=== PATIENT | female | born 1970 | race Caucasian/White ===

== ENCOUNTER → 2017-04-26 | Outpatient (CLI) | payer MEDICARE, MEDICAID ==
[~2017-04-26] MED LIST: BENZ200C15 PO; CIPR-344 PO; CLON-303 PO; DOXY-181 PO; ESTR2TAB26 PO; FLUO-202 PO; FLUT9.9S; HYDR-318 PO; HYDR-385 PO; HYDR-4225 PO; HYDR-4228 PO; HYDR-4305 PO; LAMO100T56 PO; LEVO750T27 PO; LEVO750T44 PO; LURA60TA PO; METH4TAB66 PO; NICO1PAT86 TD; PRAZ5CAP16 PO; PROG100C16 PO; PROM-110 PO
--- NOTE | 2017-04-26 10:16 | RADIOLOGY IMAGING REPORT ---
FACILITY: [facility] - [place] PATIENT NAME: Joe Farrell : 1970 MR: [id number] V: [id number] EXAM DATE: ORDERING PHYSICIAN: NELIDA GEORGE TECHNOLOGIST: [place] [facility] [place] Joe Farrell : 1970 Visit/Account:[id number] Date of Sevice: 04/26/2017 CHEST PA AND LAT History: Chronic cough. Comparison none. FINDINGS: Lungs are clear, no effusion. No pneumothorax. Heart size within normal limits. Mediastinal contour w ithin normal limits. IMPRESSION: No evidence of acute cardiopulmonary disease. Report Dictated By: Mike Alonso MD at 04/26/2017 10:12 AM Report E-Signed By: Mike Alonso MD at 04/26/2017 10:12 AM WSN:[id number]
== END ==
LOC: RAD 08:53
PROVIDERS: ATTEND Nurse Practitioner Family
DX: R05 Cough (principal)
CPT/HCPCS: 71046

== ENCOUNTER 2017-08-11 20:12 | Emergency (ER) | payer MEDICARE, MEDICAID ==
--- NOTE | 2017-08-11 20:16 | ER Report ---
History and Physical Time Seen By MD: 20:16 HPI/ROS CHIEF COMPLAINT: Right eye pain HISTORY OF PRESENT ILLNESS: 47-year-old female who wears contact lenses thinks she may have gotten something in her eye earlier today. She has severe right eye pain. She had some tearing. Patient's wearing thirty-day contacts. She's had them in approximately 2 weeks. Allergies: Coded Allergies: amoxicillin (Verified Allergy, Intermediate, 05/21/16) morphine (Verified Allergy, Intermediate, 05/21/16) methylprednisolone (Verified Adverse Reaction, Unknown, 07/27/16) Caused manic episode of bipolar disorder Home Meds Active Scripts Promethazine Hcl (PROMETHAZINE HCL) 25 Mg Tablet, 1 TAB PO TID Y for NAUSEA, # 30 TAB Prov:NELIDA GEORGE APRN-C 06/12/17 Fluticasone Propionate (Flonase Allergy Relief) 9.9 Ml [place].susp, 2 EA NA DAILY , #1 BOTTLE 5 Refills Prov:NELIDA GEORGE APRN-C 04/26/17 Estradiol (ESTRADIOL) 2 Mg Tablet, 1 TAB PO DAILY, #90 TAB 3 Refills Prov:NELIDA GEORGE APRN-C 03/23/16 Reported Medications Hydrocodone Bit/Acetaminophen (HYDROCODON-ACETAMINOPHEN 5-325) 1 Each Tablet, 10 MG PO Q6H, TAB 08/11/17 Prazosin Hcl (PRAZOSIN HCL) 5 Mg Capsule, 2 TAB PO HS, CAPSULE 02/07/16 Clonazepam (CLONAZEPAM) 1 Mg Tablet, 1 TAB PO TID, #6 TAB 02/07/16 Lurasidone Hcl (LATUDA) 60 Mg Tablet, 1 TAB PO DAILY 02/07/16 Fluoxetine Hcl (PROZAC) 20 Mg Capsule, 1 TAB PO QDAY, CAPSULE 02/07/16 Lamotrigine (LAMICTAL) 100 Mg Tablet, 1 TAB PO BID 02/07/16 Discontinued Reported Medications Hydrocodone/Acetaminophen (Lortab 7.5-325 mg Tablet) 1 Each Tablet, 1 TAB PO Q6H 05/21/16 Discontinued Scripts Nicotine (NICOTINE PATCH) 1 Each Patch.td24, 1 PATCH TD DAILY, #42 PATCH 0 Refills Prov:NELIDA GEORGE APRN-C 08/13/16 Reviewed Nurses Notes: Yes Old Medical Records Reviewed: Yes Smoking Status: Current: Every Day Smoker Hx Substance Use Disorder: No Hx Alcohol Use: No Constitutional Vital Sign - Last 24 Hours 08/11/17 20:17 Temp 98.7 Pulse 79 Resp 18 B/P (MAP) 112/69 Pulse Ox 94 O2 Delivery Room Air Physical Exam General appearance: Mild distress HEENT: Both contact lenses are removed. The right eye shows no corneal uptake. Respiratory: Chest is non tender, lungs are clear to auscultation. Cardiac: Regular rate and rhythm DIFFERENTIAL DIAGNOSIS: After history and physical exam differential diagnosis was considered for foreign body eye, corneal abrasion, contact keratitis, corneal ulcer Medical Decision Making ED Course/Re-evaluation ED Course Patient was admitted to an examination room. H&P was done. The differential diagnoses was considered. On clinical exam. Patient has contact keratitis of her right eye. Her contacts are removed. She'll be treated with Tobrex drops twice a day for 3 days. She is advised not wear contacts for 5 days. Decision to Disposition Date: Aug 11, 2017 Decision to Disposition Time: 20:41 Depart Departure Latest Vital Signs Vital Signs Date Time Temp Pulse Resp B/P (MAP) Pulse Ox O2 Delivery O2 Flow Rate FiO2 08/11/17 20:17 98.7 79 18 112/69 94 Room Air Impression: Primary Impression: Keratitis secondary to contact lens Condition: Improved Disposition: HOME OR SELF-CARE Referrals: NELIDA GEORGE APRN [employer] (PCP) Patient Instructions: Keratitis (ED) Additional Instructions: Use Tobrex drops 1 drop twice daily for 3 days You may resume wearing her contacts in 5 days if her eyes feel fine Follow-up with your eye doctor if unimproved in 3 days REBEKAH SURESH DO Aug 11, 2017 20:16
[2017-08-11 20:17] VITALS: BP 112/69
[2017-08-11] MEDS ORDERED: HYDR-385 PO (20:26)
[2017-08-11] MEDS ORDERED: FLUORESCEIN SOD 1 MG 1 EA STRP OD ONE (20:30)
[2017-08-11] MEDS ORDERED: PROPARACAINE 0.5% OP 15ML BTL OD ONE (20:30)
[2017-08-11] MEDS ORDERED: TOBRAMYCIN/DEX OP SUSP 2.5 ML OD ONE (20:45)
== END 2017-08-11 20:51 | disposition home or self-care (01) ==
LOC: ER 20:26
DX: H16.9 Unspecified keratitis (principal)
CPT/HCPCS: 99282; A9270

== ENCOUNTER 2017-10-14 22:30 | Emergency (ER) | payer MEDICARE, MEDICAID ==
[~2017-10-14 22:30] MED LIST changes: -CHOL400C10 PO
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
[2017-10-14] MEDS ORDERED: CHOL400C10 PO (22:36)
[2017-10-14] MEDS ORDERED: METOCLOPRAMIDE 10 MG/2 ML SDV IVP ONE (22:55)
[2017-10-14] MEDS ORDERED: IOPAMIDOL 76% 100 ML INFUS BTL 0 ML ONE (23:20)
[2017-10-14] MEDS ORDERED: NS 0.9% 25 ML BAG 25 ML ONE (23:20)
--- NOTE | 2017-10-15 00:53 | RADIOLOGY IMAGING REPORT ---
FACILITY: [facility] PATIENT NAME: Joe Farrell : 1970 MR: [id number] V: [id number] EXAM DATE: ORDERING PHYSICIAN: ROLO HOWE TECHNOLOGIST: Location: [facility] - [place] Patient: Joe Farrell : 1970 Visit/Account:[id number] Date of Sevice: 10/14/[address] scan without contrast COMPARISONS: None ADDITIONAL PERTINENT HISTORY: Choking TECHNIQUE: Multiple axial images were obtained from the skull base to the vertex without IV contrast . One of the following dose optimization techniques was utilized in the performance of this exam: Aut omated exposure control; adjustment of the mA and/or kV according to the patient's size; or use of an iterative reconstruction technique. Specific details can be referenced in the facility's radiology CT exam operational policy. FINDINGS: Midline shift: Negative Ventricles: Negative Brain parenchyma: Negative Extra-axial spaces: Negative Intracranial vasculature: Negative Osseous structures: Negative Paranasal sinuses and mastoid air cells: Thickening of the [place] of the right maxillary sinus with a small amount of frothy material within the right sphenoid sinus. Surrounding soft tissues and orbits: Negative IMPRESSION: 1. Mild paranasal sinus disease. 2. Normal head CT scan without contrast. Report Dictated By: Foreign Colby MD at 10/15/2017 12:43 AM Report E-Signed By: Foreign Colby MD at 10/15/2017 12:49 AM WSN:[id number]
--- NOTE | 2017-10-15 00:56 | RADIOLOGY IMAGING REPORT ---
FACILITY: [facility] PATIENT NAME: Joe Farrell : 1970 MR: [id number] V: [id number] EXAM DATE: ORDERING PHYSICIAN: ROLO HOWE TECHNOLOGIST: Location: [facility] - [place] Patient: Joe Farrell : 1970 Visit/Account:[id number] Date of Sevice: 10/15/2017 CT of the neck without contrast Comparison: None Additional pertinent history: Choking TECHNIQUE: Multiple axial images were obtained from the mid portion of the brain through the superio r mediastinum without IV contrast. Coronal and sagittal reformatted images were obtained off the ax ial source data. One of the following dose optimization techniques was utilized in the performance o f this exam: Automated exposure control; adjustment of the mA and/or kV according to the patient's si ze; or use of an iterative reconstruction technique. Specific details can be referenced in the [facility]'s radiology CT exam operational policy. FINDINGS: Visualized portions of the brain parenchyma:Negative Parotid glands/submandibular glands/thyroid: Negative Orbits: Negative Paranasal sinuses: Mild thickening of the [place] of the right maxillary sinus with material along the medial wall of the right maxillary sinus which could represent a mild degree of acute right maxillar y sinusitis. Otherwise negative Parapharyngeal spaces: Negative Nasopharynx/oropharynx/hypopharynx: Negative Tonsillar pillars: Negative Oral tongue/tongue base: Negative True and false cords: Negative Lymph node assessment: Few small scattered nonpathologically enlarged lymph nodes within multiple sta tions within the neck, presumably reactive. Otherwise negative Surrounding soft tissues: Negative Vasculature: Negative Osseous structures: Patient status post previous anterior interbody fusion of C4-C6. Anteriorly and p osteriorly directed osteophytes at C3-C4 and C6-7. IMPRESSION: 1. No acute process involving the neck. Report Dictated By: Foreign Colby MD at 10/15/2017 12:49 AM Report E-Signed By: Foreign Colby MD at 10/15/2017 12:53 AM WSN:[id number]
[2017-10-15 02:06] VITALS: BP 107/76
== END 2017-10-15 02:07 | disposition home or self-care (01) ==
LOC: ER 22:34
DX: M54.2 Cervicalgia (principal); J34.89 Other specified disorders of nose and nasal sinuses; F17.200 Nicotine dependence, unspecified, uncomplicated; Z79.899 Other long term (current) drug therapy
CPT/HCPCS: 70450; 70490; 99284; Q9967

== ENCOUNTER → 2017-10-14 | Outpatient (CLI) | payer MEDICARE, MEDICAID ==
[~2017-10-14] MED LIST changes: +CHOL400C10 PO; -CLON-303 PO; +CLON-304 PO
== END ==
LOC: AMB 21:42
PROVIDERS: ATTEND Nurse Practitioner
DX: M54.2 Cervicalgia (principal); R51 Headache; F10.129 Alcohol abuse with intoxication, unspecified; Y04.0XXA Assault by unarmed brawl or fight, initial encounter
CPT/HCPCS: A0425; A0427

== ENCOUNTER 2017-10-30 20:03 | Emergency (ER) | payer MEDICARE, MEDICAID ==
[~2017-10-30 20:03] MED LIST changes: -HYDR25TA66 PO; -LOR5/325 PO; -LURA120T PO; -ONDA4TAB PO; -PROM12.556 PO
--- NOTE | 2017-10-30 20:09 | ER Report ---
History and Physical Time Seen By MD: 20:09 HPI/ROS CHIEF COMPLAINT: Vomiting, hematemesis, coughing, difficulty breathing HISTORY OF PRESENT ILLNESS: 47-year-old female smoker is been sick for several weeks. Began vomiting 2 days ago. Tonight she vomited so hard she developed hematemesis. Patient is complaining of shortness of breath. She noted wheezing when she would lay supine and she become more short of breath. Patient describes viral URI symptoms for 2-3 weeks. She has a productive cough. Patient's never been treated for emphysema or COPD. Patient admits she has a chronic cough for the last 4 months. She's been much worse and she had viral URI symptoms for the last 3 weeks. She's been vomiting today. She notes no fevers. Her husbands been sick as well. REVIEW OF SYSTEMS: Respiratory: As above Cardiovascular: No chest pain, no palpitations. Gastrointestinal: As above Musculoskeletal: No back pain. Allergies: Coded Allergies: amoxicillin (Verified Allergy, Intermediate, 10/30/17) morphine (Verified Allergy, Intermediate, 10/30/17) methylprednisolone (Verified Adverse Reaction, Unknown, 10/30/17) Caused manic episode of bipolar disorder prednisone (Verified Adverse Reaction, Unknown, 10/30/17) MAKES MY BIPOLAR MEDS NOT WORK Home Meds Active Scripts Promethazine Hcl (PROMETHAZINE HCL) 12.5 Mg Tablet, 12.5 MG PO Q6H PRN for NAUSEA/VOMITING, #60 TAB Prov:REBEKAH SURESH DO 10/30/17 Estradiol (ESTRADIOL) 2 Mg Tablet, 1 TAB PO DAILY, #90 TAB 3 Refills Prov:NELIDA GEORGE APRN-C 10/22/17 Fluticasone Propionate (Flonase Allergy Relief) 9.9 Ml [place].susp, 2 EA NA DAILY, #1 BOTTLE 5 Refills Prov:NELIDA GEORGE APRNP-C 04/26/17 Reported Medications Hydralazine Hcl (HYDRALAZINE HCL) 25 Mg Tablet, 25 MG PO QDAY, TAB 10/30/17 Hydrocodone Bit/Acetaminophen (HYDROCODON-ACETAMINOPHEN 5-325) 1 Each Tablet, 2 EACH PO Q4H PRN for PAIN MDD 4000, TAB 10/30/17 Ondansetron (ZOFRAN ODT) 4 Mg Tab.rapdis, 4 MG PO PRN, TAB.CHRISS 10/30/17 Lurasidone Hcl (LATUDA) 120 Mg Tablet, 120 MG PO QDAY 10/30/17 Cholecalciferol (Vitamin D3) (VITAMIN D) 400 Unit Capsule, 400 UNIT PO, CAPSULE 10/14/17 Prazosin Hcl (PRAZOSIN HCL) 5 Mg Capsule, 2 TAB PO HS, CAPSULE 02/07/16 Clonazepam (CLONAZEPAM) 1 Mg Tablet, 1 TAB PO TID, #6 TAB 02/07/16 Fluoxetine Hcl (PROZAC) 20 Mg Capsule, 1 TAB PO QDAY, CAPSULE 02/07/16 Lamotrigine (LAMICTAL) 100 Mg Tablet, 1 TAB PO BID 02/07/16 Discontinued Reported Medications Lurasidone Hcl (LATUDA) 60 Mg Tablet, 1 TAB PO DAILY 02/07/16 Discontinued Scripts Promethazine Hcl (PROMETHAZINE HCL) 25 Mg Tablet, 1 TAB PO TID PRN for NAUSEA, #30 TAB Prov:NELIDA GEORGE APRN [employer] SPLITTER OPERATOR-C 06/12/17 Past Medical/Surgical History Past Medical History Gastrointestinal: Reports hx of: other GI history (reports intolerance to dairy and gluten - ) Musculoskeletal: Reports hx of: neck pain (chronic - related to ani placement / previous fusion ) Psychiatric: Reports hx of: anxiety bipolar disorder PTSD Past Surgical History HEENT: Reports hx of: tonsillectomy Gynecologic: Reports hx of: hysterectomy oophorectomy Musculoskeletal: Reports hx of: arthroscopy (Shoulder) spinal surgery (ani placed to neck C3-5 for c-spine fracture - 2005 - chronic pain since then) Reviewed Nurses Notes: Yes Old Medical Records Reviewed: Yes Smoking Status: Current: Every Day Smoker Hx Substance Use Disorder: No Hx Alcohol Use: No Constitutional Vital Sign - Last 24 Hours 10/30/17 10/30/17 10/30/17 10/30/17 20:06 20:09 20:15 20:15 Temp 97.5 Pulse 52 45 Resp 28 16 B/P (MAP) 119/82 (94) 119/82 Pulse Ox 100 97 O2 Delivery Room Air Room Air 10/30/17 10/30/17 10/30/17 10/30/17 20:15 20:18 20:33 20:48 Pulse 50 53 52 Resp 21 11 B/P (MAP) 101/75 (84) Pulse Ox 99 97 92 O2 Delivery Room Air Room Air Room Air 10/30/17 10/30/17 10/30/17 10/30/17 20:53 20:56 21:00 21:17 Pulse 55 Resp 18 B/P (MAP) 102/74 (83) 106/72 (83) 95/79 (84) Pulse Ox 95 O2 Delivery Room Air 10/30/17 10/30/17 10/30/17 10/30/17 21:23 21:36 21:38 21:53 Pulse 58 55 53 Resp 12 12 14 B/P (MAP) 108/74 (85) Pulse Ox 99 93 94 O2 Delivery Room Air Room Air 10/30/17 10/30/17 22:00 22:08 Pulse 59 Resp 12 B/P (MAP) 104/67 (79) Pulse Ox 96 O2 Delivery Room Air Physical Exam Vital signs stable, afebrile, pulse ox normal, vomiting General Appearance: The patient is alert, has no immediate need for airway protection and no current signs of toxicity. Moderate distress, vomiting, no evidence of hematemesis HEENT: Pupils equal and round no injection. TMs normal, oropharynx with m oderate erythema, Respiratory: Chest is non tender, lungs are clear to auscultation., Faint, extremely wheezing Cardiac: regular rate and rhythm Gastrointestinal: Abdomen is soft mild epigastric tenderness, no masses, bowel sounds normal. Musculoskeletal: Neck: Neck is supple and non tender. No lymphadenopathy Extremities have full range of motion and are non tender. Skin: No rashes or lesions. DIFFERENTIAL DIAGNOSIS: After history and physical exam differential diagnosis was considered for shortness of breath including but not limited to pulmonary infectious process, COPD, asthma, pulmonary embolus and congestive heart failure. Additionallyabdominal pain including but not limited to appendicitis, cholecystitis, gastritis and urinary tract infection. Medical Decision Making Data Points Result Diagram: 10/30/17205010/30/172050 Laboratory Hematology Test 10/30/17 20:51 10/30/17 21:16 Red Blood Count 4.06 M/uL (4.17-5.56) Mean Corpuscular Volume 97.0 fL (80.0-96.0) Mean Corpuscular Hemoglobin 34.3 pg (26.0-33.0) Mean Corpuscular Hemoglobin Concent 35.3 g/dL (32.0-36.0) Red Cell Distribution Width 13.1 % (11.5-14.5) Mean Platelet Volume 8.4 fL (7.2-11.1) Neutrophils (%) (Auto) 41.8 % (39.4-72.5) Lymphocytes (%) (Auto) 51.9 % (17.6-49.6) Monocytes (%) (Auto) 4.1 % (4.1-12.4) Eosinophils (%) (Auto) 1.1 % (0.4-6.7) Basophils (%) (Auto) 1.1 % (0.3-1.4) Nucleated RBC Relative Count (auto) 0.1 /100WBC Neutrophils # (Auto) 3.3 K/uL (2.0-7.4) Lymphocytes # (Auto) 4.1 K/uL (1.3-3.6) Monocytes # (Auto) 0.3 K/uL (0.3-1.0) Eosinophils # (Auto) 0.1 K/uL (0.0-0.5) Basophils # (Auto) 0.1 K/uL (0.0-0.1) Nucleated RBC Absolute Count (auto) 0.01 K/uL Prothrombin Time 12.9 seconds (12.0-14.4) Prothromb Time International Ratio 0.97 Activated Partial Thromboplast Time 27 seconds (23-35) D-Dimer Quantitative (PE/DVT) 0.29 ug/ml (0-0.50) Sodium Level 139 mmol/L (137-145) Potassium Level 3.9 mmol/L (3.5-5.0) Chloride Level 106 mmol/L (98-107) Carbon Dioxide Level 24 mmol/L (22-31) Blood Urea Nitrogen 25 mg/dl (7-18) Creatinine 0.70 mg/dl (0.52-1.04) Glomerular Filtration Rate Calc > 60.0 Random Glucose 88 mg/dl (75-110) Calcium Level 8.4 mg/dl (8.4-10.2) Total Bilirubin 0.2 mg/dl (0.2-1.3) Aspartate Amino Transf (AST/SGOT) 44 U/L (0-35) Alanine Aminotransferase (ALT/SGPT) 52 U/L (0-56) Alkaline Phosphatase 93 U/L (0-126) Troponin I < 0.012 ng/ml B-Type Natriuretic Peptide 56 pg/ml (0-100) Total Protein 5.6 g/dl (6.3-8.2) Albumin 3.2 g/dl (3.5-5.0) Human Chorionic Gonadotropin, Qual Negative (NEGATIVE) Urine Color Yellow Urine Clarity Clear Urine pH 6.0 pH (4.8-9.5) Urine Specific [place] 1.028 Urine Protein Negative mg/dL (NEGATIVE) Urine Glucose (UA) Negative mg/dL (NEGATIVE) Urine Ketones Negative mg/dL (NEGATIVE) Urine Blood Negative (NEGATIVE) Urine Nitrite Negative (NEGATIVE) Urine Bilirubin Moderate (NEGATIVE) Urine Urobilinogen 2.0 mg/dL (0.2-1.9) Urine Leukocyte Esterase Negative (NEGATIVE) Urine RBC <1 /HPF (0-2/HPF) Urine WBC None /HPF (0-5/HPF) Urine Squamous Epithelial Cells Many /LPF (</=FEW) Urine Bacteria Negative /HPF (NONE-FEW) Urine Mucus Few /HPF (NONE-FEW) Chemistry Test 10/30/17 20:51 10/30/17 21:16 White Blood Count 7.9 k/uL (4.5-11.0) Red Blood Count 4.06 M/uL (4.17-5.56) Hemoglobin 13.9 g/dL (12.0-16.0) Hematocrit 39.4 % (34.0-47.0) Mean Corpuscular Volume 97.0 fL (80.0-96.0) Mean Corpuscular Hemoglobin 34.3 pg (26.0-33.0) Mean Corpuscular Hemoglobin Concent 35.3 g/dL (32.0-36.0) Red Cell Distribution Width 13.1 % (11.5-14.5) Platelet Count 186 K/uL (150-450) Mean Platelet Volume 8.4 fL (7.2-11.1) Neutrophils (%) (Auto) 41.8 % (39.4-72.5) Lymphocytes (%) (Auto) 51.9 % (17.6-49.6) Monocytes (%) (Auto) 4.1 % (4.1-12.4) Eosinophils (%) (Auto) 1.1 % (0.4-6.7) Basophils (%) (Auto) 1.1 % (0.3-1.4) Nucleated RBC Relative Count (auto) 0.1 /100WBC Neutrophils # (Auto) 3.3 K/uL (2.0-7.4) Lymphocytes # (Auto) 4.1 K/uL (1.3-3.6) Monocytes # (Auto) 0.3 K/uL (0.3-1.0) Eosinophils # (Auto) 0.1 K/uL (0.0-0.5) Basophils # (Auto) 0.1 K/uL (0.0-0.1) Nucleated RBC Absolute Count (auto) 0.01 K/uL Prothrombin Time 12.9 seconds (12.0-14.4) Prothromb Time International Ratio 0.97 Activated Partial Thromboplast Time 27 seconds (23-35) D-Dimer Quantitative (PE/DVT) 0.29 ug/ml (0-0.50) Glomerular Filtration Rate Calc > 60.0 Calcium Level 8.4 mg/dl (8.4-10.2) Total Bilirubin 0.2 mg/dl (0.2-1.3) Aspartate Amino Transf (AST/SGOT) 44 U/L (0-35) Alanine Aminotransferase (ALT/SGPT) 52 U/L (0-56) Alkaline Phosphatase 93 U/L (0-126) Troponin I < 0.012 ng/ml B-Type Natriuretic Peptide 56 pg/ml (0-100) Total Protein 5.6 g/dl (6.3-8.2) Albumin 3.2 g/dl (3.5-5.0) Human Chorionic Gonadotropin, Qual Negative (NEGATIVE) Urine Color Yellow Urine Clarity Clear Urine pH 6.0 pH (4.8-9.5) Urine Specific [place] 1.028 Urine Protein Negative mg/dL (NEGATIVE) Urine Glucose (UA) Negative mg/dL (NEGATIVE) Urine Ketones Negative mg/dL (NEGATIVE) Urine Blood Negative (NEGATIVE) Urine Nitrite Negative (NEGATIVE) Urine Bilirubin Moderate (NEGATIVE) Urine Urobilinogen 2.0 mg/dL (0.2-1.9) Urine Leukocyte Esterase Negative (NEGATIVE) Urine RBC <1 /HPF (0-2/HPF) Urine WBC None /HPF (0-5/HPF) Urine Squamous Epithelial Cells Many /LPF (</=FEW) Urine Bacteria Negative /HPF (NONE-FEW) Urine Mucus Few /HPF (NONE-FEW) Coagulation Test 10/30/17 20:51 Prothrombin Time 12.9 seconds Prothromb Time International Ratio 0.97 Activated Partial Thromboplast Time 27 seconds D-Dimer Quantitative (PE/DVT) 0.29 ug/ml Urinalysis Test 10/30/17 21:16 Urine Color Yellow Urine Clarity Clear Urine pH 6.0 pH (4.8-9.5) Urine Specific [place] 1.028 Urine Protein Negative mg/dL (NEGATIVE) Urine Glucose (UA) Negative mg/dL (NEGATIVE) Urine Ketones Negative mg/dL (NEGATIVE) Urine Blood Negative (NEGATIVE) Urine Nitrite Negative (NEGATIVE) Urine Bilirubin Moderate (NEGATIVE) Urine Urobilinogen 2.0 mg/dL (0.2-1.9) Urine Leukocyte Esterase Negative (NEGATIVE) Urine RBC <1 /HPF (0-2/HPF) Urine WBC None /HPF (0-5/HPF) Urine Squamous Epithelial Cells Many /LPF (</=FEW) Urine Bacteria Negative /HPF (NONE-FEW) Urine Mucus Few /HPF (NONE-FEW) EKG/Imaging EKG Interpretation 12 lead EK Rhythm: Sinus bradycardia of 44 bpm [place]: normal QRS: Low voltage QRS ST segments: normal, no old EKGs for comparison Imaging X-ray: Two-view chest x-ray was obtained. I viewed the images myself on the PACS system. My interpretation of the images is: No infiltrate, no effusion, normal mediastinum., Comparison to previous chest x-ray 04/26/17. The radiologist interpretation had no clinically significant variation from this interpretation. ED Course/Re-evaluation Clinical Indication for ER IV: IV Access ED Course Patient was admitted to an examination room. H&P was done. The differential diagnoses was considered. On clinical examination. Patient's having vomiting, chest pain, shortness of breath and hematemesis. Diagnostic evaluation is undertaken. Patient's treated with DuoNeb, Zofran. Patient feeling much better. Her d-dimer, troponin, EKG are unremarkable. Patient's chest x-ray shows clear lung arcos, no infiltrate. She has a variety of complaints. I suspect she is having severe GERD with reflux into her bronchial airways causing bronchospasm and asthma exacerbation. She is a smoker. I think she needs to quit smoking. She'll be discharged home on Prilosec. Patient thinks hematemesis is secondary to a Rachel-Chung tear. I do not think she needs further diagnostic evaluation at this time. The primary care can make that decision. She's given Phenergan for nausea control to combine with Zofran intermittently. She needs to follow-up with her primary care for further evaluation including pulmonary function test. Decision to Disposition Date: Oct 30, 2017 Decision to Disposition Time: 21:35 Depart Departure Latest Vital Signs Vital Signs Date Time Temp Pulse Resp B/P (MAP) Pulse Ox O2 Delivery O2 Flow Rate FiO2 10/30/17 22:08 59 12 96 Room Air 10/30/17 22:00 104/67 (79) 10/30/17 20:09 97.5 Impression: Primary Impression: Vomiting Additional Impressions: Hematemesis Bronchospasm GERD (gastroesophageal reflux disease) Chronic neck pain Condition: Improved Disposition: HOME OR SELF-CARE Referrals: NELIDA GEORGE APRN JACKHAM[employer] SPLITTER OPERATOR-C (PCP) New Scripts Promethazine Hcl (PROMETHAZINE HCL) 12.5 Mg Tablet 12.5 MG PO Q6H PRN for NAUSEA/VOMITING, #60 TAB Prov: REBEKAH SURESH DO 10/30/17 Patient Instructions: Gastroesophageal Reflux Disease (ED) Additional Instructions: Take Prilosec 20 mg per day to reduce her stomach acid for several weeks Follow-up with your primary care physician early next week for consideration of pulmonary function testing, PFTs Problem Qualifiers Primary Impression: Vomiting Vomiting type: unspecified Vomiting Intractability: unspecified Nausea presence: with nausea Qualified Codes: R11.2 - Nausea with vomiting, unspecified Additional Impressions: Hematemesis Nausea presence: with nausea Qualified Codes: K92.0 - Hematemesis GERD (gastroesophageal reflux disease) Esophagitis presence: esophagitis presence not specified Qualified Codes: K21.9 - Gastro-esophageal reflux disease without esophagitis REBEKAH SURESH DO Oct 30, 2017 20:09
[2017-10-30] MEDS ORDERED: LOR5/325 PO (20:17)
[2017-10-30] MEDS ORDERED: LURA120T PO (20:17)
[2017-10-30] MEDS ORDERED: ONDA4TAB PO (20:17)
[2017-10-30] MEDS ORDERED: KETOROLAC 30 MG/ML VIAL IVP ONE (20:20)
[2017-10-30] MEDS ORDERED: ALBUTEROL/IPRATROPIUM 3 ML NEB NEB ONE (20:20)
[2017-10-30] MEDS ORDERED: ONDANSETRON 4 MG/2 ML VIAL IVP ONE (20:20)
[2017-10-30] MEDS ORDERED: fentaNYL CITR 100 MCG/2 ML AMP IVP ONE (20:20)
--- NOTE | 2017-10-30 20:34 | EKG ---
FACILITY: [facility] PATIENT NAME: DESTINY JACKSON : [id number] MR: [id number]: [id number] EXAM DATE: ORDERING PHYSICIAN: REBEKAH SURESH TECHNOLOGIST: SHU Test Reason : SOB Blood Pressure : / mmHG Vent. Rate : 044 BPM Atrial Rate : 044 BPM P-R Int : 178 ms QRS Dur : 082 ms QT Int : 462 ms P-R-T Axes : 054 014 048 degrees QTc Int : 395 ms Marked sinus bradycardia Possible Left atrial enlargement Low voltage QRS Cannot rule out Anterior infarct , age undetermined Abnormal ECG No previous ECGs available Confirmed by MIGUEL CHAVIS ([id number]) on 10/31/2017 6:38:55 AM Referred By: Confirmed By:MIGUEL CHAVIS
[2017-10-30] MEDS ORDERED: HYDR25TA66 PO (20:53)
[2017-10-30 21:06] LABS: PLATELET COUNT, AUTOMATED 186 K/uL (150-450)
[2017-10-30 21:27] LABS: INR 0.97
[2017-10-30 22:00] VITALS: BP 104/67
[2017-10-30] MEDS ORDERED: PROM12.556 PO (22:14)
[2017-10-30] MEDS ORDERED: ALBUTEROL 8 GM INHALER INH ONE (22:15)
--- NOTE | 2017-10-30 23:26 | RADIOLOGY IMAGING REPORT ---
[place] [facility] [place] NAME: Joe Vuong : 1970 MR: [id number] V: [id number] EXAM DATE: ORDERING PHYSICIAN: REBEKAH SURESH TECHNOLOGIST: [place] [facility] [place] : 1970 Visit/Account:[id number] Date of Sevice: 10/30/2017 TWO VIEW CHEST 10/30/2017 9:22 PM. INDICATION: dyspnea wheezing COMPARISON: 04/26/2017. FINDINGS: Lungs are well-expanded. The lungs are clear. No pneumothorax or pleural effusion. Pulmo nary vasculature is unremarkable. Heart size is normal. Cervical fusion hardware. IMPRESSION: No acute cardiopulmonary abnormality. Report Dictated By: Sarkis Anne MD at 10/30/2017 11:21 PM Report E-Signed By: Sarkis Anne MD at 10/30/2017 11:22 PM WSN:[id number]
== END 2017-10-30 22:24 | disposition home or self-care (01) ==
LOC: ER 20:22
DX: J98.01 Acute bronchospasm (principal); K21.9 Gastro-esophageal reflux disease without esophagitis; R05 Cough; M54.2 Cervicalgia; R11.2 Nausea with vomiting, unspecified
CPT/HCPCS: 36415; 71046; 81001; 83880; 84484; 84703; 85025; 85379; 85610; 85730; 93005; 94640; 96374; 96375; 99284; J1885; J2405; J3535; J7620; 82040; 82247; 82310; 82374; 82435; 82565; 82947; 84075; 84132; 84155; 84295; 84450; 84460; 84520

== ENCOUNTER → 2017-10-30 | Outpatient (CLI) | payer MEDICARE, MEDICAID ==
[~2017-10-30] MED LIST changes: +CHOL400C10 PO; +HYDR25TA66 PO; +LOR5/325 PO; +LURA120T PO; +ONDA4TAB PO; +PROM12.556 PO
== END ==
LOC: LAB 11:24
PROVIDERS: ATTEND Nurse Practitioner Family
DX: E78.5 Hyperlipidemia, unspecified (principal); Z79.899 Other long term (current) drug therapy; R79.9 Abnormal finding of blood chemistry, unspecified
CPT/HCPCS: 36415; 82465; 83718; 84443; 84478

== ENCOUNTER → 2017-11-13 | Outpatient (CLI) | payer MEDICARE, MEDICAID ==
[~2017-11-13] MED LIST changes: +HYDR25TA66 PO; +LOR5/325 PO; +LURA120T PO; +ONDA4TAB PO; +PROM12.556 PO
[2017-11-13 09:37] LABS: PLATELET COUNT, AUTOMATED 221 K/uL (150-450)
== END ==
LOC: LAB 09:16
PROVIDERS: ATTEND Nurse Practitioner Family
DX: E78.5 Hyperlipidemia, unspecified (principal); Z79.899 Other long term (current) drug therapy; R79.89 Other specified abnormal findings of blood chemistry
CPT/HCPCS: 36415; 82040; 82247; 82310; 82374; 82435; 82565; 82947; 84075; 84132; 84155; 84295; 84439; 84450; 84460; 84480; 84520; 85025

== ENCOUNTER → 2017-11-21 | Outpatient (CLI) | payer MEDICARE, MEDICAID ==
[~2017-11-21] MED LIST changes: +ALB18R IH; +OMEP-125 PO
== END ==
LOC: LAB 09:10
PROVIDERS: ATTEND Nurse Practitioner Family
DX: E03.9 Hypothyroidism, unspecified (principal)
CPT/HCPCS: 36415; 84439; 84443

== ENCOUNTER → 2017-12-13 | Outpatient (CLI) | payer MEDICARE, MEDICAID ==
[~2017-12-13] MED LIST changes: +FLU60SYR36 IM
--- NOTE | 2017-12-13 14:22 | RADIOLOGY IMAGING REPORT ---
FACILITY: [facility] PATIENT NAME: Joe Vuong : 1970 MR: [id number] V: [id number] EXAM DATE: ORDERING PHYSICIAN: NELIDA GEORGE TECHNOLOGIST: Location: [facility] - [place] Patient: Joe Vuong : 1970 Visit/Account:[id number] Date of Sevice: 12/13/2017 FOOT 3 VIEW LEFT Indication: Fourth and fifth toe pain Comparison: None Available Findings: No evidence of fracture, dislocation, or acute osseous abnormality of the left foot. There is no focal soft tissue abnormality. No evidence of radiopaque foreign body. IMPRESSION: 1.No acute osseous abnormality of the left foot Report Dictated By: Sourav Eaton at 12/13/2017 2:17 PM Report E-Signed By: Sourav Eaton at 12/13/2017 2:18 PM WSN:[email or web address]
== END ==
LOC: LAB 11:41
PROVIDERS: ATTEND Nurse Practitioner Family
DX: M79.672 Pain in left foot (principal)

== ENCOUNTER 2018-01-29 03:39 | Day surgery (SDC) | payer MEDICARE, MEDICAID ==
[~2018-01-29] VITALS: Ht 162.6 cm; Wt 73.9 kg
[~2018-01-29 03:39] MED LIST changes: +ASPI-757 PO; +BUTA1CAP6 PO; -CLON-304 PO; +CLON-333 PO; +DICL100G39; +FLUO40CA76 PO; +HYDR-393 PO; -HYDR-4305 PO; +HYDR-627 PO; +LACT1CAP6 PO; +PRAZ2CAP26 PO; +PROP20TA56 PO; +[UNRECOGNIZED DRUG - OTHER] PO
[2018-01-29] MEDS ORDERED: LIDOCAINE MPF 1% 5 ML VIAL ONE (09:25)
[2018-01-29] MEDS ORDERED: PROPOFOL EMUL(*) 10MG/ML 20 ML 40 ML ONE (09:25)
[2018-01-29] MEDS ORDERED: KETAMINE HCL 500 MG/10 ML VIAL ONE (09:30)
[2018-01-29 09:38] LABS: PLATELET COUNT, AUTOMATED 223 K/uL (150-450)
[2018-01-29 10:04] VITALS: BP 99/71
[2018-01-29] MEDS ORDERED: NORMOSOL R SOLN(*) 1000 ML BAG 1,000 ML IV PRN (10:35)
[2018-01-29] MEDS ORDERED: LIDOCAINE/SOD BICARB 8.4% SYR ID ONE (10:35)
[2018-01-29 10:48] VITALS: BP 101/61
--- NOTE | 2018-01-29 10:59 | Short(Outpt) Discharge Summary ---
Discharge Summary Reason for Hosp/Final Diag: (1) GERD (gastroesophageal reflux disease) Status: Acute Hospital Course & Plan: EGD with biopsies and colonoscopy with biopsies completed without problems. (2) Diarrhea Status: Chronic (3) Abdominal bloating Status: Chronic (4) Nausea and vomiting Status: Chronic Departure Discharge to: Home, Self Care Discharge Instructions Home Meds Active Scripts Fluticasone Propionate (Flonase Allergy Relief) 9.9 Ml [place].susp, 2 EA NA DAILY PRN for ALLERGY SYMPTOMS, #1 BOTTLE 5 Refills Prov:MIGUEL THURSTON MD 01/20/18 Omeprazole (OMEPRAZOLE) 20 Mg Capsule.dr, 1 TAB PO DAILY, #90 CAP 1 Refill Prov:NELIDA GEORGE APRN-C 11/21/17 Albuterol Sulfate (VENTOLIN HFA) 18 Gm Inh, 2 PUFF IH Q6H PRN for WHEEZING, #1 INHALER 1 Refill Prov:NELIDA GEORGE APRN-Micha 11/21/17 Estradiol (ESTRADIOL) 2 Mg Tablet, 1 TAB PO DAILY, #90 TAB 0 Refills Prov:NELIDA GEORGE APRNP-C 11/21/17 Reported Medications [Methal Folate] No Conflict Check, 1 TAB PO DAILY 01/23/18 Lactobacillus Combination No.4 (PROBIOTIC) 1 Each Capsule, 1 EACH PO DAILY, CAPSULE 01/23/18 Prazosin Hcl (PRAZOSIN HCL) 2 Mg Capsule, 2 MG PO QAM, CAPSULE 01/23/18 Acetaminophen/Hydrocodone (HYDROCODON-ACETAMINOPHN 10-325) 1 Each Tab, 1 EACH PO QID PRN for PAIN, TAB 01/23/18 Fluoxetine Hcl (PROZAC) 40 Mg Capsule, 40 MG PO QDAY, CAPSULE 01/23/18 Aspirin (ASPIRIN) 325 Mg Tablet, 325 MG PO Q4-6H PRN for PAIN, TAB 01/20/18 Diclofenac Sodium 1% Gel (VOLTAREN 1% GEL) Unknown Strength Gel..gram. 01/20/18 Propranolol Hcl (PROPRANOLOL HCL) 20 Mg Tablet, 20 MG PO BID, TAB 01/20/18 Butalb/Acetaminophen/Caffeine (FIORICET 50-300-40) Unknown Strength Capsule, PO Q4H, CAPSULE 01/20/18 Hydralazine Hcl (HYDRALAZINE HCL) 25 Mg Tablet, 25 MG PO QDAY, TAB 10/30/17 Lurasidone Hcl (LATUDA) 120 Mg Tablet, 120 MG PO QDAY 10/30/17 Cholecalciferol (Vitamin D3) (VITAMIN D) 400 Unit Capsule, 400 UNIT PO DAILY, CAPSULE 10/14/17 Prazosin Hcl (PRAZOSIN HCL) 5 Mg Capsule, 2 TAB PO HS, CAPSULE 02/07/16 Clonazepam (CLONAZEPAM) 1 Mg Tablet, 1 TAB PO TID, #6 TAB 02/07/16 Lamotrigine (LAMICTAL) 100 Mg Tablet, 1 TAB PO BID 02/07/16 Discontinued Reported Medications Hydrocodone Bit/Acetaminophen (HYDROCODON-ACETAMINOPHEN 5-325) 1 Each Tablet, 2 EACH PO Q4H PRN for PAIN MDD 4000, TAB 10/30/17 Fluoxetine Hcl (PROZAC) 20 Mg Capsule, 1 TAB PO QDAY, CAPSULE 02/07/16 Diet: Regular Activity: As Tolerated Special Instructions: Your upper endoscopy and colonoscopy were completed without any problems and your prep was excellent (Good Job!!). I didn't find any inflammation, cancer, polyps or other abnormalities but I took several biopsies of your stomach, small intestine and colon. My office will call you in the next couple of days to schedule a follow up appointment to see me back to discuss all of these results and see how your symptoms are. In the mean time, continue religiously following a gluten free diet and if you think you're dairy sensitive avoid that as well and we'll see how you're feeling when I see you back in my office. Problem Qualifiers (1) GERD (gastroesophageal reflux disease): Esophagitis presence: without esophagitis Qualified Codes: K21.9 - Gastro- esophageal reflux disease without esophagitis (2) Diarrhea: Diarrhea type: unspecified type Qualified Codes: R19.7 - Diarrhea, unspecified (3) Nausea and vomiting: Vomiting type: unspecified Vomiting Intractability: non-intractable Qualif ied Codes: R11.2 - Nausea with vomiting, unspecified MIGUEL THURSTON MD Jan 29, 2018 10:59
[2018-01-29 11:28] VITALS: BP 110/89
[2018-01-29 11:29] VITALS: BP 112/69
[2018-02-03] MEDS ORDERED: ESTR2TAB26 PO (08:56)
== END 2018-01-29 11:45 | disposition home or self-care (01) ==
LOC: OR 03:39
PROVIDERS: ATTEND Surgery
DX: R11.2 Nausea with vomiting, unspecified (principal); R19.7 Diarrhea, unspecified; K21.9 Gastro-esophageal reflux disease without esophagitis
CPT/HCPCS: 00813; 36415; 43239; 45380; 83516; 83690; 85025; 85651; 86140; 87077; 88305; J2001; J2704; J3490; 82040; 82247; 82310; 82374; 82435; 82565; 82947; 84075; 84132; 84155; 84295; 84450; 84460; 84520

== ENCOUNTER → 2018-02-11 | Outpatient (CLI) | payer MEDICARE, MEDICAID ==
--- NOTE | 2018-02-11 11:05 | RADIOLOGY IMAGING REPORT ---
FACILITY: [facility] PATIENT NAME: Joe Vuong : 1970 MR: [id number] V: [id number] EXAM DATE: ORDERING PHYSICIAN: MIGUEL THURSTON TECHNOLOGIST: Location: [facility] - [place] Patient: Joe Vuong : 1970 Visit/Account:[id number] Date of Sevice: 02/11/2018 GALLBLADDER HISTORY: Right upper quadrant pain, postprandial nausea and bloating about four years on and off COMPARISON: None. FINDINGS: Gallbladder: Unremarkable; no stones or sludge. Liver: Negative. Common duct: Slightly above normal at, six mm diameter. Pancreas: Partially obscured by bowel, visualized aspects unremarkable. Right kidney: Right kidney appears unremarkable as imaged measuring 10.5 cm in length Upper abdominal aorta and IVC: Patent. Ascites: None visualized. IMPRESSION: Common bile duct diameter slightly above normal at 6 mm (5 mm is normal for this age) there is howeve r no demonstration of gallbladder stones, sludge gallbladder wall thickening or pericholecystic fluid Report Dictated By: Kiesha Goel MD at 02/11/2018 10:52 AM Report E-Signed By: Kiesha Goel MD at 02/11/2018 11:01 AM WSN:[email or web address]
== END ==
LOC: US 01:46
PROVIDERS: ATTEND Surgery
DX: R10.11 Right upper quadrant pain (principal); R11.0 Nausea; R14.0 Abdominal distension (gaseous)
CPT/HCPCS: 76705

== ENCOUNTER → 2018-02-17 | Outpatient (CLI) | payer MEDICARE, MEDICAID ==
[~2018-02-17] MED LIST changes: +SINCALIDE 5 MCG VIAL INJ ONE; +WATER FOR INJ,STERILE 20 ML 0 ML ONE
== END ==
LOC: NUC 06:37
PROVIDERS: ATTEND Surgery
DX: Z02.9 Encounter for administrative examinations, unspecified (principal)
CPT/HCPCS: J2805

== ENCOUNTER → 2018-02-25 | Outpatient (CLI) | payer MEDICARE, MEDICAID ==
[~2018-02-25] MED LIST changes: -WATER FOR INJ,STERILE 20 ML 0 ML ONE; +WATER FOR INJ,STERILE 20 ML 20 ML ONE
--- NOTE | 2018-02-25 10:36 | RADIOLOGY IMAGING REPORT ---
FACILITY: [facility] PATIENT NAME: Joe Vuong : 1970 MR: [id number] V: [id number] EXAM DATE: ORDERING PHYSICIAN: MIGUEL THURSTON TECHNOLOGIST: Location: [facility] Patient: Joe Vuong : 1970 Visit/Account:[id number] Date of Sevice: 02/25/2018 HIDA W/CCK HISTORY: , Nausea vomiting and bloating TECHNIQUE: 5.1 mCi Tc99m Hepatolite was injected intravenously. Multiple sequential gamma camera lisa ges of the abdomen were obtained for 22 minutes. At that time, Kinevac was injected intravenously and an additional 30 minutes of gamma camera imaging data was acquired. A computer-generated region of i nterest was placed around the gallbladder and time-activity curve for the gallbladder was derived. Th e gallbladder ejection fraction was calculated. COMPARISON: Gallbladder ultrasound February 11, 2018 FINDINGS: Liver uptake and excretion: Unremarkable. Time to appearance: Bile ducts: 7 minutes. Gallbladder: 8 minutes. Duodenum: 19 minutes. Duodenal-gastric reflux / extravasation: None. Post IV Kinevac: Normal and prompt contraction of the gallbladder. Patient symptoms: None reported Ejection fraction = 98% (normal range >35%). IMPRESSION: Gallbladder ejection fraction of 98% Report Dictated By: Kiesha Goel MD at 02/25/2018 10:29 AM Report E-Signed By: Kiesha Goel MD at 02/25/2018 10:32 AM WSN:[id number]
== END ==
LOC: NUC 00:41
PROVIDERS: ATTEND Surgery
DX: R14.0 Abdominal distension (gaseous) (principal); R11.2 Nausea with vomiting, unspecified; R10.11 Right upper quadrant pain
CPT/HCPCS: 78226; A9537; J2805

== ENCOUNTER → 2018-02-27 | Outpatient (CLI) | payer MEDICARE, MEDICAID ==
[~2018-02-27] MED LIST changes: -SINCALIDE 5 MCG VIAL INJ ONE; -WATER FOR INJ,STERILE 20 ML 20 ML ONE
== END ==
LOC: LAB 10:28
PROVIDERS: ATTEND Nurse Practitioner Family
DX: N89.8 Other specified noninflammatory disorders of vagina (principal)
CPT/HCPCS: 87210; 87491; 87591

== ENCOUNTER 2018-03-06 17:11 | Emergency (ER) | payer MEDICARE, MEDICAID ==
[2018-03-06 17:12] VITALS: BP 108/77
--- NOTE | 2018-03-06 17:29 | ER Report ---
History and Physical Time Seen By MD: 17:25 HPI/ROS CHIEF COMPLAINT: Cat bite HISTORY OF PRESENT ILLNESS: This is a 47-year-old female who presents to the emergency department for a Bite or scratch. Patient states that [place] and a cat either scratched her or bit her on her right hand. She states she cleaned the wound with hydrogen peroxide, there is a little bit of bruising and swelling, no other erythema or concerning findings. No fevers or chills. No nausea or vomiting. REVIEW OF SYSTEMS: Respiratory: No cough, no dyspnea. Cardiovascular: No chest pain, no palpitations. Gastrointestinal: No vomiting, no abdominal pain. Musculoskeletal: No back pain. Integumentary: As above. Allergies: Coded Allergies: amoxicillin (Verified Allergy, Intermediate, 03/06/18) morphine (Verified Allergy, Intermediate, 03/06/18) codeine (Verified Allergy, Mild, Nausea, vomiting, 03/06/18) methylprednisolone (Verified Adverse Reaction, Unknown, 03/06/18) Caused manic episode of bipolar disorder prednisone (Verified Adverse Reaction, Unknown, 03/06/18) MAKES MY BIPOLAR MEDS NOT WORK Home Meds Active Scripts Amoxicillin/Pot Clav 875-125 Mg Tab (AUGMENTIN 875-125 TABLET) 1 Each Tablet, 1 TAB PO Q12H, #14 TAB 0 Refills Prov:FLACO TARIQ-SOTERO 03/06/18 Estradiol (ESTRADIOL) 2 Mg Tablet, 1 TAB PO DAILY, #30 TAB 5 Refills Prov:NELIDA GEORGE APRN-Micha 02/27/18 Fluticasone Propionate (Flonase Allergy Relief) 9.9 Ml [place].susp, 2 EA NA DAILY PRN for ALLERGY SYMPTOMS, #1 BOTTLE 5 Refills Prov:MIGUEL THURSTON MD 01/20/18 Omeprazole (OMEPRAZOLE) 20 Mg Capsule.dr, 1 TAB PO DAILY, #90 CAP 1 Refill Prov:NELIDA GEORGE APRN 11/21/17 Albuterol Sulfate (VENTOLIN HFA) 18 Gm Inh, 2 PUFF IH Q6H PRN for WHEEZING, #1 INHALER 1 Refill Prov:NELIDA GEORGE APRN 11/21/17 Reported Medications [Methal Folate] No Conflict Check, 1 TAB PO DAILY 01/23/18 Lactobacillus Combination No.4 (PROBIOTIC) 1 Each Capsule, 1 EACH PO DAILY, CAPSULE 01/23/18 Prazosin Hcl (PRAZOSIN HCL) 2 Mg Capsule, 2 MG PO QAM, CAPSULE 01/23/18 Acetaminophen/Hydrocodone (HYDROCODON-ACETAMINOPHN 10-325) 1 Each Tab, 1 EACH PO QID PRN for PAIN, TAB 01/23/18 Fluoxetine Hcl (PROZAC) 40 Mg Capsule, 40 MG PO QDAY, CAPSULE 01/23/18 Aspirin (ASPIRIN) 325 Mg Tablet, 325 MG PO Q4-6H PRN for PAIN, TAB 01/20/18 Diclofenac Sodium 1% Gel (VOLTAREN 1% GEL) Unknown Strength Gel..gram. 01/20/18 Propranolol Hcl (PROPRANOLOL HCL) 20 Mg Tablet, 20 MG PO BID, TAB 01/20/18 Butalb/Acetaminophen/Caffeine (FIORICET 50-300-40) Unknown Strength Capsule, PO Q4H, CAPSULE 01/20/18 Hydralazine Hcl (HYDRALAZINE HCL) 25 Mg Tablet, 25 MG PO QDAY, TAB 10/30/17 Lurasidone Hcl (LATUDA) 120 Mg Tablet, 120 MG PO QDAY 10/30/17 Cholecalciferol (Vitamin D3) (VITAMIN D) 400 Unit Capsule, 400 UNIT PO DAILY, CAPSULE 10/14/17 Prazosin Hcl (PRAZOSIN HCL) 5 Mg Capsule, 2 TAB PO HS, CAPSULE 02/07/16 Clonazepam (CLONAZEPAM) 1 Mg Tablet, 1 TAB PO TID, #6 TAB 02/07/16 Lamotrigine (LAMICTAL) 100 Mg Tablet, 1 TAB PO BID 02/07/16 Past Medical/Surgical History The patient has a past medical and surgical history of headaches, occasionally uses her inhaler, nausea, vomiting, diarrhea abdominal pain and rectal cramping, she has a ani in her neck, C-spine fracture, chronic back pain, wears glasses, bipolar, hysterectomy, shoulder surgery, surgery for deviated septum, tonsillectomy. Reviewed Nurses Notes: Yes Hx Smoking: Yes (smoke 1PPD for 25 yrs) Smoking Status: Current: Every Day Smoker Hx Substance Use Disorder: No Hx Alcohol Use: No Constitutional Vital Sign - Last 24 Hours 03/06/18 17:12 Temp 97.9 Pulse 84 Resp 16 B/P (MAP) 108/77 Pulse Ox 92 O2 Delivery Room Air Physical Exam General Appearance: The patient is alert, has no immediate need for airway protection and no current signs of toxicity. Eyes: Pupils equal and round no injection. Respiratory: Chest is non tender, lungs are clear to auscultation. Cardiac: regular rate and rhythm. Gastrointestinal: Abdomen is soft and non tender, no masses, bowel sounds normal. Musculoskeletal: Neck: Neck is supple and non tender. Extremities have full range of motion and are non tender. Skin: Puncture wound, swelling and bruising to the dorsum of the right hand. CMS intact. DIFFERENTIAL DIAGNOSIS: After history and physical exam differential diagnosis was considered for Bite, cat scratch. Medical Decision Making ED Course/Re-evaluation ED Course The patient was admitted to room. A history and physical were obtained. Differential diagnoses were considered. After examination of the patient, did tell her that she probably would benefit from antibiotics for the Bite or cat scratch. She does have some swelling and some bruising noted to the dorsum of the right hand. The patient states she is allergic to amoxicillin however she states she's had Augmentin times in the past and has never had a reaction, therefore she was given a prescription for Augmentin. Patient was also instructed to gently cleanse the site with warm soapy water, apply a thin layer of antibiotic ointment to the wound keep it covered and dry. Patient expressed understanding and was discharged home. Decision to Disposition Date: Mar 06, 2018 Decision to Disposition Time: 17:41 Depart Departure Latest Vital Signs Vital Signs Date Time Temp Pulse Resp B/P (MAP) Pulse Ox O2 Delivery O2 Flow Rate FiO2 03/06/18 17:12 97.9 84 16 108/77 92 Room Air Impression: Primary Impression: Cat bite of right hand Condition: Improved Disposition: HOME OR SELF-CARE Referrals: NELIDA GEORGE APRN RNFA-C (PCP) New Scripts Amoxicillin/Pot Clav 875-125 Mg Tab (AUGMENTIN 875-125 TABLET) 1 Each Tablet 1 TAB PO Q12H, #14 TAB 0 Refills Prov: FLACO TARIQ RNFA-BC 03/06/18 Patient Instructions: Animal Bite (ED) Additional Instructions: When cleaning the wound, use warm soapy water, no need to use hydrogen peroxide anymore. Keep the wound clean and covered. Can apply a thin layer of antibiotic ointment to the wound. Drink plenty of water. Get plenty of rest. Return to the emergency department for any concerns or worsening symptoms. Problem Qualifiers Primary Impression: Cat bite of right hand Encounter type: initial encounter Qualified Codes: S61.451A - Open bite of right hand, initial encounter; W55.01XA - Bitten by cat, initial encounter FLACO TARIQ-SOTERO Mar 06, 2018 17:29
[2018-03-06] MEDS ORDERED: AMOX-559 PO (17:42)
== END 2018-03-06 17:48 | disposition home or self-care (01) ==
LOC: ER 17:16
DX: S61.451A Open bite of right hand, initial encounter (principal); W55.01XA Bitten by cat, initial encounter
CPT/HCPCS: 99281

== ENCOUNTER 2018-03-08 13:10 | Emergency (ER) | payer MEDICARE, MEDICAID ==
[~2018-03-08 13:10] MED LIST changes: +AMOX-559 PO
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
[2018-03-08] MEDS ORDERED: RABIES VAC(HUMAN) DIPL 2.5/KIT IM ONLY ONE (14:05)
[2018-03-08] MEDS ORDERED: RABIES IMM GLOB(HUMAN) 150U/ML IM ONLY ONE ×2 (14:05→14:30)
[2018-03-08] MEDS ORDERED: DIPHTH/TETANUS/ACEL. PERTUSSIS IM ONLY ONE (14:10)
[2018-03-08 14:18] LABS: PLATELET COUNT, AUTOMATED 243 K/uL (150-450)
[2018-03-08] MEDS ORDERED: RABIES IMMUNE GLOB/PF 300 U/ML VIAL IM ONE (14:30)
[2018-03-08 14:45] VITALS: BP 117/79
[2018-03-08] MEDS ORDERED: MELA10TA2 PO (16:49)
[2018-03-08] MEDS ORDERED: DIPH-464 PO (16:49)
[2018-03-08] MEDS ORDERED: MELA10CA PO (16:55)
[2018-03-08] MEDS ORDERED: DIPH-740 PO (16:56)
== END 2018-03-08 15:15 ==
LOC: ER 13:27
DX: F10.20 Alcohol dependence, uncomplicated (principal); F19.10 Other psychoactive substance abuse, uncomplicated; Y90.3 Blood alcohol level of 60-79 mg/100 ml; S61.451A Open bite of right hand, initial encounter; F17.210 Nicotine dependence, cigarettes, uncomplicated
CPT/HCPCS: 36415; 80305; 81001; 81025; 83735; 84443; 85025; 90375; 90471; 90472; 90675; 90715; 96372; 99284; G0480; 80320; 80329; 82040; 82247; 82310; 82374; 82435; 82565; 82947; 84075; 84132; 84155; 84295; 84450; 84460; 84520

== ENCOUNTER 2018-03-08 15:18 | Inpatient (IN) | payer MEDICARE, MEDICAID ==
[~2018-03-08] VITALS: Ht 162.6 cm; Wt 88.0 kg
[2018-03-08] MEDS ORDERED: MAG HYD/AL HYD/SIMETH 30ML UDC PO PRN (15:40)
[2018-03-08] MEDS ORDERED: DIAZEPAM 10 MG TAB PO PRN (15:45)
[2018-03-08] MEDS ORDERED: NICOTINE CARTRIDGE 1 EA PO PRN (15:45)
[2018-03-08 16:09] VITALS: BP 104/82
[2018-03-08] MEDS: NICOTINE INH SYSTEM 10 MG/INH INH PRN (16:12)
[2018-03-08] MEDS ORDERED: DIPH-464 PO (16:49)
[2018-03-08] MEDS ORDERED: MELA10TA2 PO (16:49)
[2018-03-08] MEDS ORDERED: MELA10CA PO (16:55)
[2018-03-08] MEDS ORDERED: DIPH-740 PO (16:56)
[2018-03-08] MEDS ORDERED: FLUTICASONE PROP 0.05% 16 GM PRN (17:20)
[2018-03-08] MEDS: ONDANSETRON 4 MG ODT TABDP SL PRN (18:25)
--- NOTE | 2018-03-08 19:26 | NUR ---
report from Lisa/kathleen. will assume care of pt at this time. pt resting in bed, eyes closed, normal resp, no distress noted at this time.
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
[2018-03-08] MEDS: LURASIDONE 40 MG TAB PO SCH (20:45)
[2018-03-08] MEDS: AMOX/CLAV 875 MG TAB PO SCH (20:46)
[2018-03-08] MEDS: PROPRANOLOL HCL 20 MG TAB PO SCH (20:46)
[2018-03-08] MEDS: PRAZOSIN HCL 5 MG CAP PO SCH (20:46)
[2018-03-08] MEDS: FLUoxetine HCL 20 MG CAP PO SCH (20:47)
[2018-03-08] MEDS: lamoTRIgine 100 MG TAB PO SCH (20:47)
[2018-03-08 20:51] VITALS: BP 104/81
[2018-03-09 02:09] VITALS: BP 109/81
[2018-03-09 06:00] VITALS: BP 105/74
[2018-03-09 06:44] LABS: PLATELET COUNT, AUTOMATED 211 K/uL (150-450)
[2018-03-09 08:25] VITALS: BP 108/72
[2018-03-09] MEDS: PROPRANOLOL HCL 20 MG TAB PO SCH ×2 (09:00→20:17)
[2018-03-09] MEDS: PANTOPRAZOLE SOD 20 MG TABEC PO SCH (09:00)
[2018-03-09] MEDS: FOLIC ACID 1 MG TAB PO SCH (09:00)
[2018-03-09] MEDS: lamoTRIgine 100 MG TAB PO SCH ×2 (09:00→20:17)
[2018-03-09] MEDS: LACTOBACILLUS ACIDOPHILUS TAB PO SCH (09:00)
[2018-03-09] MEDS: MULTIVITAMINS PO SCH (09:00)
[2018-03-09] MEDS: CHOLECALCIFEROL 400 INTLU TAB 400 INTLU TAB PO SCH (09:00)
[2018-03-09] MEDS: THIAMINE HCL 100 MG TAB PO SCH (09:00)
[2018-03-09] MEDS: LURASIDONE 40 MG TAB PO SCH ×2 (09:01→20:19)
[2018-03-09] MEDS: ESTRADIOL 1 MG TAB PO SCH (09:01)
[2018-03-09] MEDS: AMOX/CLAV 875 MG TAB PO SCH (09:03)
[2018-03-09] MEDS: ONDANSETRON 4 MG ODT TABDP SL PRN ×2 (09:05→16:52)
[2018-03-09] MEDS: ASPIRIN 325 MG ENTERIC COATED PO PRN ×2 (09:05→15:00)
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
[2018-03-09] MEDS: NICOTINE INH SYSTEM 10 MG/INH INH PRN (11:52)
[2018-03-09 13:25] VITALS: BP 120/84
[2018-03-09] MEDS ORDERED: METRONIDAZOLE 500 MG TABLET PO ONE (13:30)
[2018-03-09] MEDS: TRIMETH/SULFA DS 160-800MG TAB PO SCH ×2 (13:31→20:17)
--- NOTE | 2018-03-09 14:35 | Antimicrobial Stewardship ---
Antimicrobial Stewardship Empiricly appropriate: Yes Comment Patient was started in the ED on Augmentin 875 mg po bid on 03/06/18 for a cat bite. Patient returned on the and was admitted to [facility]. Patient does list allergy to amoxicillin that upon clarification with RN, it caused a rash. I checked whether they still wanted to continue the antibiotic and said yes and they would monitor patient. Today, 03/09/19, antibiotics were changed to Bactrim DS po bid x 4 days and Flagyl 500 mg po tid x 4 days. Reviewed for Drug Interaction: Yes Monitored for Toxicities: Yes Determine cumulative duration: 3-5 days is typical MACEY RILEY Mar 09, 2018 14:35
[2018-03-09 16:45] VITALS: BP 124/76
[2018-03-09] MEDS: METRONIDAZOLE 500 MG TABLET PO SCH ×2 (16:49→20:17)
[2018-03-09] MEDS: PRAZOSIN HCL 5 MG CAP PO SCH (20:16)
[2018-03-09] MEDS: FLUoxetine HCL 20 MG CAP PO SCH (20:19)
[2018-03-09 20:20] VITALS: BP 120/78
[2018-03-10] MEDS: ONDANSETRON 4 MG ODT TABDP SL PRN ×2 (04:32→20:59)
[2018-03-10 06:00] VITALS: BP 117/84
[2018-03-10] MEDS ORDERED: LOPERAMIDE HCL 2 MG CAP PO ONE (08:40)
[2018-03-10] MEDS: PANTOPRAZOLE SOD 20 MG TABEC PO SCH (08:44)
[2018-03-10] MEDS: LURASIDONE 40 MG TAB PO SCH ×2 (08:44→20:58)
[2018-03-10] MEDS: CHOLECALCIFEROL 400 INTLU TAB 400 INTLU TAB PO SCH (08:44)
[2018-03-10] MEDS: ESTRADIOL 1 MG TAB PO SCH (08:44)
[2018-03-10] MEDS: lamoTRIgine 100 MG TAB PO SCH ×2 (08:45→20:20)
[2018-03-10] MEDS: PROPRANOLOL HCL 20 MG TAB PO SCH ×2 (08:45→20:21)
[2018-03-10] MEDS: TRIMETH/SULFA DS 160-800MG TAB PO SCH ×2 (08:45→20:21)
[2018-03-10] MEDS: LACTOBACILLUS ACIDOPHILUS TAB PO SCH (08:45)
[2018-03-10] MEDS: FOLIC ACID 1 MG TAB PO SCH (08:45)
[2018-03-10] MEDS: MULTIVITAMINS PO SCH (08:45)
[2018-03-10] MEDS: METRONIDAZOLE 500 MG TABLET PO SCH ×3 (08:45→20:21)
[2018-03-10] MEDS: THIAMINE HCL 100 MG TAB PO SCH (08:47)
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
[2018-03-10] MEDS: NICOTINE INH SYSTEM 10 MG/INH INH PRN (12:18)
[2018-03-10 12:26] VITALS: BP 126/99
[2018-03-10] MEDS: ASPIRIN 325 MG ENTERIC COATED PO PRN (12:29)
[2018-03-10] MEDS: LOPERAMIDE HCL 2 MG CAP PO PRN ×2 (14:24→19:45)
[2018-03-10 16:50] VITALS: BP 105/85
[2018-03-10] MEDS: FLUoxetine HCL 20 MG CAP PO SCH (20:20)
[2018-03-10] MEDS: PRAZOSIN HCL 5 MG CAP PO SCH (20:21)
[2018-03-10] MEDS ORDERED: LURASIDONE 40 MG TAB ONE (20:49)
[2018-03-10] MEDS ORDERED: traZODone HCL 50 MG TAB PO SCH (21:00)
[2018-03-11 05:59] VITALS: BP 93/70
[2018-03-11] MEDS: METRONIDAZOLE 500 MG TABLET PO SCH ×2 (08:32→13:45)
[2018-03-11] MEDS: THIAMINE HCL 100 MG TAB PO SCH (08:33)
[2018-03-11] MEDS: PANTOPRAZOLE SOD 20 MG TABEC PO SCH (08:33)
[2018-03-11] MEDS: ESTRADIOL 1 MG TAB PO SCH (08:33)
[2018-03-11] MEDS: MULTIVITAMINS PO SCH (08:33)
[2018-03-11] MEDS: LURASIDONE 40 MG TAB PO SCH (08:33)
[2018-03-11] MEDS: PROPRANOLOL HCL 20 MG TAB PO SCH (08:33)
[2018-03-11] MEDS: lamoTRIgine 100 MG TAB PO SCH (08:34)
[2018-03-11] MEDS: FOLIC ACID 1 MG TAB PO SCH (08:34)
[2018-03-11] MEDS: CHOLECALCIFEROL 400 INTLU TAB 400 INTLU TAB PO SCH (08:34)
[2018-03-11] MEDS: TRIMETH/SULFA DS 160-800MG TAB PO SCH (08:34)
[2018-03-11] MEDS: LACTOBACILLUS ACIDOPHILUS TAB PO SCH (08:34)
[2018-03-11] MEDS: NICOTINE INH SYSTEM 10 MG/INH INH PRN (11:07)
[2018-03-11] MEDS ORDERED: SULF-198 PO ×2 (11:31→11:32)
[2018-03-11] MEDS ORDERED: METR-1 PO (11:33)
[2018-03-11] MEDS ORDERED: TRAZ150T8 PO (11:34)
[2018-03-11] MEDS ORDERED: PRAZ5CAP15 PO (11:42)
[2018-03-11] MEDS ORDERED: NIC10R INH (11:43)
[2018-03-11] MEDS ORDERED: PROP20TA56 PO (11:45)
[2018-03-11] MEDS ORDERED: RABIES VAC(HUMAN) DIPL 2.5/KIT IM ONLY ONE (12:00)
[2018-03-11 12:03] VITALS: BP 134/95
[2018-03-11] MEDS: ASPIRIN 325 MG ENTERIC COATED PO PRN (13:04)
[2018-03-11] MEDS ORDERED: TRIMETHOPRIM/SULFA 160-800 TH 2 TAB/BOTTLE PO ONE (15:30)
[2018-03-11] MEDS ORDERED: METRONIDAZOLE 500 MG TABLET PO ONE ×2 (15:30)
[2018-03-11] MEDS ORDERED: TRIMETH/SULFA DS 160-800MG TAB PO SCH ×2 (16:00→21:00)
[2018-03-11] MEDS ORDERED: traZODone HCL 50 MG TAB PO SCH (16:00)
[2018-03-11] MEDS ORDERED: METRONIDAZOLE 500 MG TABLET PO SCH (16:15)
[2018-03-11] MEDS ORDERED: traZODone HCL 50 MG TAB PO ONE (21:00)
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
== END 2018-03-11 16:14 | disposition home or self-care (01) | DRG 897 ==
LOC: BHS 15:18 → UNDOADMIN 15:18 → BHS 03-10 12:41
PROVIDERS: ADMIT Nurse Practitioner Psychiatric/Mental Health; ATTEND Nurse Practitioner Psychiatric/Mental Health
DX: F10.230 Alcohol dependence with withdrawal, uncomplicated (principal); F13.20 Sedative, hypnotic or anxiolytic dependence, uncomplicated; F11.20 Opioid dependence, uncomplicated; F31.60 Bipolar disorder, current episode mixed, unspecified; F43.12 Post-traumatic stress disorder, chronic; G89.29 Other chronic pain; Y90.3 Blood alcohol level of 60-79 mg/100 ml; Z63.5 Disruption of family by separation and divorce; Z91.410 Personal history of adult physical and sexual abuse; Z81.1 Family history of alcohol abuse and dependence; Z81.8 Family history of other mental and behavioral disorders; Z88.0 Allergy status to penicillin; Z88.5 Allergy status to narcotic agent; Z88.8 Allergy status to other drugs, medicaments and biological substances
CPT/HCPCS: 36415; 82040; 82247; 82310; 82374; 82435; 82565; 82947; 84075; 84132; 84155; 84295; 84450; 84460; 84520; 85025; 90675; S0119

== ENCOUNTER 2018-03-15 18:32 | Outpatient (RCR) | payer MEDICARE, MEDICAID ==
[~2018-03-15 18:32] MED LIST changes: +DICY20TA70 PO; +DIPH-464 PO; +DIPH-740 PO; +MELA10CA PO; +MELA10TA2 PO; +METR-1 PO; +NIC10R INH; +PRAZ5CAP15 PO; +SULF-198 PO; +TRAZ150T8 PO
[2018-03-15] MEDS ORDERED: RABIES VAC(HUMAN) DIPL 2.5/KIT IM ONLY ONE (18:35)
[2018-03-15 18:42] VITALS: BP 110/78
[2018-04-16] MEDS ORDERED: ONDA8TAB91 PO (09:08)
[2018-04-16] MEDS ORDERED: BENZ200C15 PO (10:27)
== END 2018-04-14 08:12 | disposition home or self-care (01) ==
LOC: SPU 18:32
PROVIDERS: ATTEND Nurse Practitioner Family
DX: Z29.14 Encounter for prophylactic rabies immune globulin (principal); T14.8XXA Other injury of unspecified body region, initial encounter; W55.01XA Bitten by cat, initial encounter
CPT/HCPCS: 90471; 90675

== ENCOUNTER 2018-03-22 14:10 | Emergency (ER) | payer MEDICARE, MEDICAID ==
[2018-03-22] MEDS ORDERED: RABIES VAC(HUMAN) DIPL 2.5/KIT IM ONLY ONE (14:50)
--- NOTE | 2018-03-22 14:50 | ER Report ---
History and Physical Time Seen By : 14:45 Hx. of Stated Complaint: rabies shot; pt states it is the last in the series. HPI/ROS CHIEF COMPLAINT: Rabies vaccine HISTORY OF PRESENT ILLNESS: This is a 47-year-old female who presents to the emergency department for the last of her rabies vaccine series. The patient was bit or scratched by a feral cat, did receive antibiotics and did receive the rabies immunoglobulin and series as well. Today the patient presents for her last of the vaccine series. The patient states she is feeling well, no fever or chills. No nausea or vomiting. No visual changes. No general or joint pain. REVIEW OF SYSTEMS: Respiratory: No cough, no dyspnea. Cardiovascular: No chest pain, no palpitations. Gastrointestinal: No vomiting, no abdominal pain. Musculoskeletal: No back pain. Allergies: Coded Allergies: amoxicillin (Verified Allergy, Intermediate, 03/22/18) morphine (Verified Allergy, Intermediate, 03/22/18) codeine (Verified Allergy, Mild, Nausea, vomiting, 03/22/18) methylprednisolone (Verified Adverse Reaction, Unknown, 03/22/18) Caused manic episode of bipolar disorder prednisone (Verified Adverse Reaction, Unknown, 03/22/18) MAKES MY BIPOLAR MEDS NOT WORK Home Meds Active Scripts Dicyclomine Hcl (DICYCLOMINE HCL) 20 Mg Tablet, 1 TAB PO QID, #60 TAB 0 Refills Prov:MIGUEL THURSTON MD 03/14/18 Estradiol (ESTRADIOL) 2 Mg Tablet, 1 TAB PO DAILY, #30 TAB 5 Refills Prov:NELIDA GEORGE APRN 02/27/18 Fluticasone Propionate (Flonase Allergy Relief) 9.9 Ml [place].susp, 2 EA NA DAILY PRN for ALLERGY SYMPTOMS, #1 BOTTLE 5 Refills Prov:MIGUEL THURSTON MD 01/20/18 Omeprazole (OMEPRAZOLE) 20 Mg Capsule.dr, 1 TAB PO DAILY, #90 CAP 1 Refill Prov:NELIDA GEORGE APRN 11/21/17 Albuterol Sulfate (VENTOLIN HFA) 18 Gm Inh, 2 PUFF IH Q6H PRN for WHEEZING, #1 INHALER 1 Refill Prov:NELIDA GEORGE APRN 11/21/17 Reported Medications Propranolol Hcl (PROPRANOLOL HCL) 20 Mg Tablet, 20 MG PO BID, TAB 03/11/18 Nicotine (NICOTROL) 10 Mg/Inh Ctr, 10 MG INH Q2H PRN for NICOTINE REPLACEMENT 03/11/18 Prazosin Hcl (MINIPRESS) 5 Mg Capsule, 5 MG PO QHS, CAPSULE 03/11/18 Trazodone Hcl (TRAZODONE HCL) 150 Mg Tablet, 50-150 MG PO QHS, #30 1 Refill Take one hour prior to intention to sleep 03/11/18 Metronidazole (FLAGYL) 500 Mg Tablet, 500 MG PO TID for 1 Day, #3 TAB 03/11/18 Sulfamethoxazole/Trimet 800-160 Mg Tab (BACTRIM DS TABLET) 1 Each Tablet, 1 TAB PO Q12H for 1 Day, #2 TAB 03/11/18 [Methal Folate] No Conflict Check, 1 TAB PO DAILY 01/23/18 Lactobacillus Combination No.4 (PROBIOTIC) 1 Each Capsule, 1 EACH PO DAILY, CAPSULE 01/23/18 Prazosin Hcl (PRAZOSIN HCL) 2 Mg Capsule, 2 MG PO QAM, CAPSULE 01/23/18 Fluoxetine Hcl (PROZAC) 40 Mg Capsule, 40 MG PO QHS, CAPSULE 01/23/18 Aspirin (ASPIRIN) 325 Mg Tablet, 325 MG PO Q4-6H PRN for PAIN, TAB 01/20/18 Propranolol Hcl (PROPRANOLOL HCL) 20 Mg Tablet, 20 MG PO BID, TAB 01/20/18 Lurasidone Hcl (LATUDA) 120 Mg Tablet, 60 MG PO BID 10/30/17 Cholecalciferol (Vitamin D3) (VITAMIN D) 400 Unit Capsule, 400 UNIT PO DAILY, CAPSULE 10/14/17 Prazosin Hcl (PRAZOSIN HCL) 5 Mg Capsule, 2 TAB PO HS, CAPSULE 02/07/16 Lamotrigine (LAMICTAL) 100 Mg Tablet, 1 TAB PO BID 02/07/16 Past Medical/Surgical History The patient has a past medical and surgical history of headaches, occasionally uses an inhaler, nausea, vomiting, diarrhea, abdominal and rectal cramping, brought in neck, neck fracture, chronic back pain, wears contacts and glasses, chronic substance abuse, pain medication disorder, depression, suicide attempt, substance abuse, hysterectomy, left shoulder repair, deviated septum, tonsillectomy. Hx Smoking: Yes Smoking Status: Heavy Tobacco Smoker Exposure to Second Hand Smoke?: Yes Hx Substance Use Disorder: Yes (PAIN MEDICATION) Hx Alcohol Use: Yes Constitutional Vital Sign - Last 24 Hours 03/22/18 03/22/18 14:18 15:10 Temp 97.7 Pulse 47 50 Resp 16 B/P (MAP) 125/78 116/78 (91) Pulse Ox 97 91 O2 Delivery Room Air Room Air Physical Exam General Appearance: The patient is alert, has no immediate need for airway protection and no current signs of toxicity. Eyes: Pupils equal and round no injection. Respiratory: Chest is non tender, lungs are clear to auscultation. Cardiac: regular rate and rhythm. Gastrointestinal: Abdomen is soft and non tender, no masses, bowel sounds normal. Musculoskeletal: Neck: Neck is supple and non tender. Extremities have full range of motion and are non tender. Skin: No rashes or lesions. DIFFERENTIAL DIAGNOSIS: After history and physical exam differential diagnosis was considered for rabies vaccine series. Medical Decision Making ED Course/Re-evaluation ED Course The patient was admitted to room. A history and physical were obtained. The patient is requesting the last dose of her rabies vaccine. The vaccine was administered, patient tolerated well and no adverse reactions. Patient was discharged home. The patient was also instructed to follow-up with her primary care provider for any other concerns. Decision to Disposition Date: Mar 22, 2018 Decision to Disposition Time: 15:03 Depart Departure Latest Vital Signs Vital Signs Date Time Temp Pulse Resp B/P (MAP) Pulse Ox O2 Delivery O2 Flow Rate FiO2 03/22/18 15:10 50 116/78 (91) 91 Room Air 03/22/18 14:18 97.7 16 Impression: Primary Impression: Medication administered Condition: Improved Disposition: HOME OR SELF-CARE Referrals: NELIDA GEORGE APRN [employer] (PCP) 2 Weeks Patient Instructions: Rabies (ED), Rabies Vaccine (ED) Additional Instructions: Follow-up with your primary care provider within the next 1-2 weeks. Drink plenty of water. Get plenty of rest. Return to the ER for any other concerns or worsening symptoms. FLACO TARIQ B[employer] SUPER[employer]OR-BC Mar 22, 2018 14:50
[2018-03-22 15:10] VITALS: BP 116/78
[2018-04-16] MEDS ORDERED: ONDA8TAB91 PO (09:08)
[2018-04-16] MEDS ORDERED: BENZ200C15 PO (10:27)
== END 2018-03-22 15:11 | disposition home or self-care (01) ==
LOC: ER 14:24
DX: Z23 Encounter for immunization (principal); W55.01XA Bitten by cat, initial encounter
CPT/HCPCS: 90471; 90675; 99281

== ENCOUNTER → 2018-04-16 | Outpatient (CLI) | payer MEDICARE, MEDICAID ==
[~2018-04-16] MED LIST changes: +ONDA8TAB91 PO
[2018-04-16 09:28] LABS: PLATELET COUNT, AUTOMATED 194 K/uL (150-450)
--- NOTE | 2018-04-16 10:15 | RADIOLOGY IMAGING REPORT ---
FACILITY: [facility] PATIENT NAME: Joe Vuong : 1970 MR: [id number] V: [id number] EXAM DATE: ORDERING PHYSICIAN: NIA HAYES TECHNOLOGIST: Location: [facility] Patient: Joe Vuong : 1970 Visit/Account:[id number] Date of Sevice: 04/16/2018 Exam type: CHEST PA LAT History: Cough and intermittent fever x3 weeks, flulike symptoms x3 weeks Comparison: October 30, 2017. Findings: The lungs are free of acute effusions, infiltrates or edema. The cardiac silhouette is normal in siz e. The trachea is in midline. There are postsurgical changes from anterior fusion of the lower cerv ical spine. IMPRESSION: 1. No acute cardiopulmonary process is seen Report Dictated By: Kiesha Goel MD at 04/16/2018 10:09 AM Report E-Signed By: Kiesha Goel MD at 04/16/2018 10:11 AM WSN:[email or web address]
== END ==
LOC: LAB 09:09
PROVIDERS: ATTEND Nurse Practitioner Primary Care
DX: R05 Cough (principal)
CPT/HCPCS: 36415; 71046; 82040; 82247; 82310; 82374; 82435; 82565; 82947; 84075; 84132; 84155; 84295; 84450; 84460; 84520; 85025

== ENCOUNTER → 2018-09-23 | Outpatient (CLI) | payer MEDICARE, MEDICAID ==
[~2018-09-23] MED LIST changes: +IBUP800T37 PO; -OMEP-125 PO; +OMEP-126 PO; -PROM12.556 PO; +PROM12.557 PO
--- NOTE | 2018-09-23 11:15 | RADIOLOGY IMAGING REPORT ---
FACILITY: [facility] PATIENT NAME: Joe Vuong : 1970 MR: [id number] V: [id number] EXAM DATE: ORDERING PHYSICIAN: NIA HAYES TECHNOLOGIST: Location: [facility] [place] Patient: Joe Vuong : 1970 Visit/Account:[id number] Date of Sevice: 09/23/2018 Study: CERVICAL SPINE MIN 4 VIEW Indication: Popping in neck Comparison study: 04/11/2016 Findings: AP lateral bilateral oblique and open-mouth views of the cervical spine were obtained. The examination demonstrates a the patient is status post C4-C6 anterior fusion. There is degenerati ve disease at the C3-4 and C6-7 levels. This is not significantly changed from the previous study. There is no evidence of lytic or blastic bony lesions. There is no evidence of abnormality of the pr evertebral soft tissues. The bony neural foramina are unremarkable. IMPRESSION: Patient status post anterior cervical fusion. There is no significant change from the pr evious study. Report Dictated By: Jake Dhillon at 09/23/2018 11:06 AM Report E-Signed By: Jake Dhillon at 09/23/2018 11:07 AM WSN:[email or web address]
--- NOTE | 2018-09-23 11:16 | RADIOLOGY IMAGING REPORT ---
FACILITY: [facility] PATIENT NAME: Joe Vuong : 1970 MR: [id number] V: [id number] EXAM DATE: ORDERING PHYSICIAN: NIA HAYES TECHNOLOGIST: Location: [facility] Patient: Joe Vuong : 1970 Visit/Account:[id number] Date of Sevice: 09/23/2018 XR THORACIC SPINE 3 V HISTORY: Acute on chronic thoracic back pain COMPARISON: None FINDINGS: 3 views of the thoracic spine were obtained. The visualized vertebral bodies exhibit normal height without spondylolisthesis. No significant dege nerative changes. There is a mild S-shaped scoliosis of the thoracic spine. The upper curve is a le voscoliosis. There is no evidence of abnormality of the paraspinal soft tissues. IMPRESSION: No acute bony abnormality identified. There is no evidence of compression fracture of the thoracic s pine. Report Dictated By: Jake Dhillon at 09/23/2018 11:08 AM Report E-Signed By: Jake Dhillon at 09/23/2018 11:08 AM WSN:[email or web address]
== END ==
LOC: RAD 10:29
PROVIDERS: ATTEND Nurse Practitioner Primary Care
DX: Z98.1 Arthrodesis status (principal)
CPT/HCPCS: 72050; 72072